=== PATIENT | male | born 1975 | race Caucasian/White ===

== ENCOUNTER 2020-05-14 06:31 | Day surgery (SDC) | payer MEDICARE, MEDICAID ==
[~2020-05-14] VITALS: Ht 177.8 cm; Wt 68.2 kg
[~2020-05-14 06:31] MED LIST: SODIUM CHLORIDE 0.9% 1,000 ML IV ONE
[2020-05-14] MEDS ORDERED: DOCU-275 PO (06:58)
[2020-05-14] MEDS ORDERED: MULT-1203 PO (06:58)
[2020-05-14] MEDS ORDERED: ENAL5TAB17 PO (06:58)
[2020-05-14] MEDS ORDERED: IPRA4AER IH (06:58)
[2020-05-14] MEDS ORDERED: DOXA2TAB PO (06:58)
[2020-05-14] MEDS ORDERED: FAMO20 PO (06:58)
[2020-05-14] MEDS ORDERED: CLON0.3T PO (06:58)
[2020-05-14] MEDS ORDERED: CHOL100044 PO (07:06)
[2020-05-14] MEDS ORDERED: OLAN10TA22 PO (07:06)
[2020-05-14] MEDS ORDERED: INSNOV SQ (07:06)
[2020-05-14] MEDS ORDERED: MIDAZOLAM HCL 2 MG/2 ML VIAL ONE (07:26)
[2020-05-14] MEDS ORDERED: FentaNYL CITRATE PF 100 MCG/2 ML VIAL ONE (07:27)
[2020-05-14 07:49] LABS: GLUCOMETER DEV NAME(LOC) SDS.; GLUCOSE,POINT OF CARE 109 MG/DL (70-110)
[2020-05-14] MEDS ORDERED: MethylPREDNISolone SOD SUCC 125 MG/2 ML VIAL IVP ONE (09:00)
[2020-05-14] MEDS ORDERED: LIDOCAINE 4% 50 ML SOLUTION TP ONE (12:00)
[2020-05-14] MEDS ORDERED: LIDOCAINE 2% 30 ML JELLY TP ONE (12:00)
[2020-05-14] MEDS ORDERED: BENZOCAINE 20% 50 MCG/SPRAY 57 GM TP ONE (12:00)
[2020-05-14] MEDS ORDERED: OXYGEN THERAPY IH SCH (20:00)
== END 2020-05-14 10:50 | disposition home or self-care (01) ==
LOC: SURGERY 06:31
PROVIDERS: ATTEND Internal Medicine Critical Care Medicine
DX: J38.4 Edema of larynx (principal); B37.0 Candidal stomatitis; F17.210 Nicotine dependence, cigarettes, uncomplicated; Z79.899 Other long term (current) drug therapy; J45.909 Unspecified asthma, uncomplicated; I10 Essential (primary) hypertension; E11.9 Type 2 diabetes mellitus without complications; D64.9 Anemia, unspecified; Z79.4 Long term (current) use of insulin
CPT/HCPCS: 31623; 31624; 71045; 82962; 87015; 87070; 87101; 87205; 87206; 87220; 88108; 88184; 88185; 88312; J2250; J2930; J3010; Z7610